=== PATIENT | female | born 2000 | race African-American/Black ===

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

== ENCOUNTER → 2018-06-06 | Outpatient (CLI) | payer OTHER, MEDICAID | LOC: M RAD 11:45 | DX: Z36.89 Encounter for other specified antenatal screening (principal); Z3A.08 8 weeks gestation of pregnancy | CPT/HCPCS: 76801 ==

== ENCOUNTER 2018-07-13 22:14 | Emergency (ER) | payer MEDICAID, OTHER, SELFPAY ==
[~2018-07-13] VITALS: Ht 157.5 cm; Wt 69.1 kg
[~2018-07-13 22:14] MED LIST: CALC500C PO; CLAR1TAB2 PO; IBUP-1022 PO; PRENTAB40 PO; SING10TA32 PO; VALA1TAB2 PO
[2018-07-13 23:00] LABS: BASO % 0.3 % (0.0-1.0); EOS # 0.3 10^3/uL (0.0-0.50); EOS % 3.2 % (0.0-3.0); HEMATOCRIT 41.5 % (36.0-47.0); HEMOGLOBIN 13.8 g/dl (12.0-15.5); LYMPH # 2.3 10^3/uL (1.5-6.5); LYMPH % 24.4 % (24.0-44.0); MEAN CORPUSCULAR HEMOGLOBIN 30.5 pg (27.0-33.0); MEAN CORPUSCULAR HGB CONC 33.3 g/dl (32.0-36.5); MEAN CORPUSCULAR VOLUME 91.8 fl (80.0-96.0); MONO # 0.7 10^3/uL (0.0-0.8); MONO % 7.4 % (0.0-5.0); NEUTROPHILS # 6.1 10^3/uL (1.8-7.7); NEUTROPHILS % 64.6 % (36.0-66.0); PLATELET COUNT, AUTOMATED 278 10^3/uL (150-450); RED BLOOD COUNT 4.52 10^6/uL (4.00-5.40); WHITE BLOOD COUNT 9.4 10^3/uL (4.0-10.0)
[2018-07-13 23:10] LABS: INR 1.05; PROTHROMBIN TIME 13.9 SECONDS (12.1-14.4)
[2018-07-13 23:11] LABS: PARTIAL THROMBOPLASTIN TIME 30.1 SECONDS (25.4-37.6)
[2018-07-13 23:19] LABS: BLOOD UREA NITROGEN 9 MG/DL (7-18); CALCIUM LEVEL 9.1 MG/DL (8.5-10.1); CARBON DIOXIDE LEVEL 26 MEQ/L (21-32); CHLORIDE LEVEL 107 MEQ/L (98-107); CREATININE FOR GFR 0.86 MG/DL (0.55-1.30); GLUCOSE, FASTING 81 MG/DL (70-100); POTASSIUM SERUM 3.5 MEQ/L (3.5-5.1); SODIUM LEVEL 140 MEQ/L (136-145)
[2018-07-14 00:21] LABS: HCG, SERUM QUALITATIVE POSITIVE (NEGATIVE)
--- NOTE | 2018-07-14 01:36 | REPVR ---
EXAM: US First Trimester, Transabdominal EXAM DATE/TIME: 07/14/2018 1:11 AM CLINICAL HISTORY: 18 years old, female; Pain; Other: D&c 06/14, heavy bleeding today; Gestational age or lmp: 07/01/18; ; Prior surgery; Surgery date: <1 month; Additional info: Dnc 06/14, heavy vag bleeding, +hcg TECHNIQUE: Real-time transabdominal obstetrical ultrasound of the maternal pelvis and a first trimester , less than 14 weeks 0 days, with image documentation. COMPARISON: No relevant prior studies available. FINDINGS: Uterus measures 8 x 4 x 5 cm. Uterus is retroverted. No evidence of gestational sac within the endometrial cavity. Endometrial stripe is regular in appearance and measures 4-5 mm. Heterogeneous echolucent material is seen within the endocervical canal without Doppler flow Right ovary appears normal, measuring 4.4 x 1.6 x 1.9 cm. Doppler demonstrates normal vascular flow. Left ovary appears normal, measuring 2.6 x 1.3 x 1.5 cm. Doppler demonstrates normal vascular flow. No abnormal volume of free pelvic fluid. IMPRESSION: No evidence of intrauterine . No ancillary evidence of ectopic , although ectopic cannot be excluded. Differential diagnosis includes spontaneous , very early intrauterine , or ectopic . Echolucent material in the endocervical canal suggests probably blood products from spontaneous . Retained products of conception without vascularity could also give this appearance. Electronically signed by: Frank Morton On 07/14/2018 01:36:01 AM
[2018-07-14 02:12] VITALS: BP 114/58
== END 2018-07-14 02:13 | disposition home or self-care (01) ==
LOC: M ED 22:14
DX: N93.8 Other specified abnormal uterine and vaginal bleeding (principal); R79.9 Abnormal finding of blood chemistry, unspecified; J45.909 Unspecified asthma, uncomplicated; Z79.899 Other long term (current) drug therapy; Z79.3 Long term (current) use of hormonal contraceptives; F17.210 Nicotine dependence, cigarettes, uncomplicated

== ENCOUNTER → 2018-07-16 | Outpatient (CLI) | payer MEDICAID, SELFPAY | LOC: M LAB 10:52 | PROVIDERS: ATTEND Physician Assistant | DX: N93.9 Abnormal uterine and vaginal bleeding, unspecified (principal) ==

== ENCOUNTER 2018-12-16 05:55 | Emergency (ER) | payer MEDICAID, OTHER, SELFPAY ==
[~2018-12-16] VITALS: Ht 157.5 cm; Wt 65.5 kg
[2018-12-16] MEDS ORDERED: NS 1,000 ML IV ONE (06:00)
[2018-12-16] MEDS ORDERED: ISOVUE-370 76% 100ML VIAL (Q9967) As Ordered ONE (06:30)
[2018-12-16 06:38] LABS: BASO % 0.2 % (0.0-1.0); EOS # 0.1 10^3/uL (0.0-0.50); EOS % 0.7 % (0.0-3.0); HEMATOCRIT 35.8 % (36.0-47.0); HEMOGLOBIN 12.2 g/dl (12.0-15.5); LYMPH # 2.5 10^3/uL (1.5-6.5); LYMPH % 16.8 % (24.0-44.0); MEAN CORPUSCULAR HEMOGLOBIN 31.1 pg (27.0-33.0); MEAN CORPUSCULAR HGB CONC 34.1 g/dl (32.0-36.5); MEAN CORPUSCULAR VOLUME 91.3 fl (80.0-96.0); MONO # 1.3 10^3/uL (0.0-0.8); MONO % 8.5 % (0.0-5.0); NEUTROPHILS # 11.1 10^3/uL (1.8-7.7); NEUTROPHILS % 73.4 % (36.0-66.0); PLATELET COUNT, AUTOMATED 255 10^3/uL (150-450); RED BLOOD COUNT 3.92 10^6/uL (4.00-5.40); WHITE BLOOD COUNT 15.1 10^3/uL (4.0-10.0)
[2018-12-16 07:09] LABS: ALBUMIN 3.5 GM/DL (3.2-5.2); ALT/SGPT 42 U/L (12-78); AMYLASE 118 U/L (25-115); BILIRUBIN,DIRECT < 0.1 MG/DL (0.0-0.2); BILIRUBIN,TOTAL 0.2 MG/DL (0.2-1.0); BLOOD UREA NITROGEN 4 MG/DL (7-18); CALCIUM LEVEL 8.7 MG/DL (8.5-10.1); CARBON DIOXIDE LEVEL 27 MEQ/L (21-32); CHLORIDE LEVEL 108 MEQ/L (98-107); CPK CREATINE PHOSPHOKINASE 302 U/L (26-192); CREATININE FOR GFR 0.61 MG/DL (0.55-1.30); ETHYL ALCOHOL (ETHANOL) 0.218 % (0.000-0.010); GLUCOSE, FASTING 111 MG/DL (70-100); LIPASE 109 U/L (73-393); MB/CK RELATIVE INDEX 1.99 (< OR =4); POTASSIUM SERUM 3.6 MEQ/L (3.5-5.1); SODIUM LEVEL 141 MEQ/L (136-145); TOTAL PROTEIN 7.8 GM/DL (6.4-8.2); TROPONIN I < 0.02 NG/ML (< 0.10)
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
[2018-12-16 08:38] VITALS: BP 107/58
--- NOTE | 2018-12-16 14:23 | REP ---
CHEST, SINGLE VIEW: There is no evidence of acute infiltrate. No pleural effusion is seen. The heart is normal in size. The mediastinal silhouette is unremarkable. The visualized osseous structures are intact. IMPRESSION: No acute pulmonary disease. Electronically Signed by Jacob Ornelas MD 12/16/2018 04:40 P
--- NOTE | 2018-12-17 12:07 | ED PDOC ---
Post-Departure Follow-Up dr burdick faxed formal report of ctabd/p for fu Je Dunn MD Dec 17, 2018 12:07
== END 2018-12-16 08:41 | disposition home or self-care (01) ==
LOC: M ED 05:55
DX: Z04.1 Encounter for examination and observation following transport accident (principal); F10.10 Alcohol abuse, uncomplicated; Z79.899 Other long term (current) drug therapy
CPT/HCPCS: 70450; 70486; 71045; 71260; 72125; 74177; 80047; 80048; 80076; 82150; 82550; 82553; 83605; 83690; 84484; 85025; 86850; 86870; 86900; 86901; 93041; 94760; 96360; 96361; 99285; G0480; Q9967

== ENCOUNTER 2019-04-20 13:28 | Emergency (ER) | payer OTHER, SELFPAY ==
[~2019-04-20] VITALS: Ht 157.5 cm; Wt 63.5 kg
[2019-04-20] MEDS ORDERED: VENTAER INH (13:43)
[2019-04-20] MEDS ORDERED: NEXP1IMP SC (13:43)
[2019-04-20 14:46] LABS: VENOUS BASE EXCESS -0.1 (-2.0-2.0); VENOUS O2 SATURATION 92.8 % (60.0-80.0); VENOUS PARTIAL PRESSURE CO2 42.4 mmHg (38.0-50.0); VENOUS PARTIAL PRESSURE O2 66.1 mmHg (30.0-50.0); VENOUS PH 7.388 UNITS (7.330-7.430); VENOUS STANDARD HCO3 24.3 MEQ/L; VENOUS TOTAL CO2 26.3 MEQ/L (24.0-28.0)
[2019-04-20 14:50] LABS: BASO % 0.2 % (0.0-1.0); EOS # 0.1 10^3/uL (0.0-0.5); EOS % 0.8 % (0.0-3.0); HEMATOCRIT 40.5 % (36.0-47.0); HEMOGLOBIN 13.4 g/dl (12.0-15.5); LYMPH # 1.8 10^3/uL (1.5-5.0); LYMPH % 13.3 % (24.0-44.0); MEAN CORPUSCULAR HEMOGLOBIN 30.7 pg (27.0-33.0); MEAN CORPUSCULAR HGB CONC 33.1 g/dl (32.0-36.5); MEAN CORPUSCULAR VOLUME 92.9 fl (80.0-96.0); MONO # 0.8 10^3/uL (0.0-0.8); NEUTROPHILS # 10.9 10^3/uL (1.5-8.5); NEUTROPHILS % 79.3 % (36.0-66.0); PLATELET COUNT, AUTOMATED 278 10^3/uL (150-450); RED BLOOD COUNT 4.36 10^6/uL (4.00-5.40); WHITE BLOOD COUNT 13.8 10^3/uL (4.0-10.0)
[2019-04-20 15:14] LABS: ALBUMIN 3.8 GM/DL (3.2-5.2); ALT/SGPT 16 U/L (12-78); BILIRUBIN,DIRECT 0.1 MG/DL (0.0-0.2); BILIRUBIN,TOTAL 0.5 MG/DL (0.2-1.0); LIPASE 70 U/L (73-393); TOTAL PROTEIN 8.1 GM/DL (6.4-8.2)
[2019-04-20 15:15] LABS: HCG, SERUM QUALITATIVE NEGATIVE (NEGATIVE)
[2019-04-20] MEDS ORDERED: FLAG500T PO (15:26)
[2019-04-20] MEDS ORDERED: CIPR-249 PO (15:26)
[2019-04-20] MEDS ORDERED: cefTRIAXone SOD 250 MG VIAL (J0696) IM ONE (15:30)
[2019-04-20] MEDS ORDERED: AZITHROMYCIN 250 MG TAB PO ONE (15:30)
[2019-04-20] MEDS ORDERED: LIDOCAINE 1% SDV 5 ML VIAL DILUENT ONE (15:30)
--- NOTE | 2019-04-20 15:30 | REP ---
Urinary tract sonogram: History: Right flank pain. Comparison: Comparison CT study December 16, 2018. Findings: Scanning at the level of the urinary bladder shows no abnormality. Renal cortical echogenicity pattern is normal bilaterally and contours are smooth. There is no evidence of hydronephrosis, cyst, mass, or calculus in either kidney. The right kidney measures 10.7 x 5.7 x 4.6 cm. Left renal dimensions are 10.0 x 5.2 x 4.6 cm. Impression: Normal urinary tract sonography. Electronically Signed by Juan Carlos Khalil MD 04/20/2019 03:21 P
[2019-04-20 15:56] VITALS: BP 110/66
[2019-04-20 16:14] LABS: CHLAMYDIA DNA AMPLIFICATION POSITIVE (NEGATIVE); GC DNA AMPLIFICATION NEGATIVE (NEGATIVE)
== END 2019-04-20 16:05 | disposition home or self-care (01) ==
LOC: M ED 13:28
DX: N39.0 Urinary tract infection, site not specified (principal); N76.0 Acute vaginitis; F17.200 Nicotine dependence, unspecified, uncomplicated; Z79.51 Long term (current) use of inhaled steroids
CPT/HCPCS: 76775; 80076; 81001; 82803; 83605; 83690; 84703; 85025; 87088; 87186; 87210; 87661; 96372; 99283; J0696

== ENCOUNTER 2019-09-04 10:02 | Emergency (ER) | payer OTHER, SELFPAY ==
[~2019-09-04] VITALS: Ht 157.5 cm; Wt 67.5 kg
[~2019-09-04 10:02] MED LIST changes: +CIPR-249 PO; +FLAG500T PO; +NEXP1IMP SC; -VALA1TAB2 PO; +VALA1TAB5 PO; +VENTAER INH
[2019-09-04] MEDS ORDERED: ACETAMINOPHEN TAB 650MG DOSE (2X325MG) PO ONE (12:00)
[2019-09-04 12:17] LABS: INFLUENZA A AMPLIFICATION NEGATIVE (NEGATIVE); INFLUENZA B AMPLIFICATION POSITIVE (NEGATIVE)
[2019-09-04 13:09] VITALS: BP 120/57
[2019-09-07] MEDS ORDERED: AMOX500C PO (10:01)
== END 2019-09-04 13:32 | disposition home or self-care (01) ==
LOC: M ED 10:02
DX: J10.89 Influenza due to other identified influenza virus with other manifestations (principal); B34.9 Viral infection, unspecified; J45.909 Unspecified asthma, uncomplicated; Z79.899 Other long term (current) drug therapy; Z79.3 Long term (current) use of hormonal contraceptives; F17.210 Nicotine dependence, cigarettes, uncomplicated

== ENCOUNTER → 2024-02-07 | Outpatient (CLI) | payer OTHER ==
[~2024-02-07] MED LIST changes: +AMOX500C PO; -CALC500C PO; +ETON68IM SC; +MONT-5 PO; -NEXP1IMP SC; +RA A500C4 PO; -SING10TA32 PO
[2024-02-07 16:16] LABS: HEMATOCRIT 34.7 % (36.0-47.0); HEMOGLOBIN 11.5 g/dl (12.0-15.5); MEAN CORPUSCULAR HEMOGLOBIN 31.9 pg (27.0-33.0); MEAN CORPUSCULAR HGB CONC 33.1 g/dl (32.0-36.5); MEAN CORPUSCULAR VOLUME 96.1 fl (80.0-96.0); PLATELET COUNT, AUTOMATED 293 10^3/uL (150-450); RED BLOOD COUNT 3.61 10^6/uL (4.00-5.40); WHITE BLOOD COUNT 13.3 10^3/uL (4.0-10.0)
[2024-02-07 17:09] LABS: HEPATITIS B SURFACE ANTIGEN NEGATIVE (NEGATIVE)
[2024-02-07 17:22] LABS: HIV 1&2 SCREEN NEGATIVE (NEGATIVE)
[2024-02-07 17:30] LABS: HEPATITIS C VIRUS ABY INDEX < 0.02 INDEX (<0.8)
[2024-02-07 17:42] LABS: GC DNA AMPLIFICATION NEGATIVE (NEGATIVE)
== END ==
LOC: M PLALAB 14:25
PROVIDERS: ATTEND Nurse Practitioner Women's Health
DX: Z34.91 Encounter for supervision of normal pregnancy, unspecified, first trimester (principal)

== ENCOUNTER 2024-03-19 21:39 | Emergency (ER) | payer OTHER ==
[~2024-03-19] VITALS: Ht 160 cm; Wt 63.1 kg
[2024-03-19 21:40] VITALS: BP 99/54; TEMP 99.2; O2SAT 100
== END 2024-03-19 22:20 | disposition admitted as inpatient to this hospital (09) ==
LOC: M ED 21:39
DX: Z53.21 Procedure and treatment not carried out due to patient leaving prior to being seen by health care provider (principal)

== ENCOUNTER 2024-03-19 22:10 | Outpatient (CLI) | payer OTHER ==
[~2024-03-19] VITALS: Ht 160 cm; Wt 63.2 kg
[2024-03-19 22:32] VITALS: BP 104/59
[2024-03-19] MEDS: ONDANSETRON 4MG 2ML VIAL IV ONE (23:20)
[2024-03-19 23:23] LABS: BASO % 0.2 % (0.0-1.0); EOS % 0.2 % (0.0-3.0); HEMATOCRIT 38.4 % (36.0-47.0); HEMOGLOBIN 12.9 g/dl (12.0-15.5); LYMPH # 0.8 10^3/uL (1.5-5.0); LYMPH % 6.1 % (24.0-44.0); MEAN CORPUSCULAR HEMOGLOBIN 32.1 pg (27.0-33.0); MEAN CORPUSCULAR HGB CONC 33.6 g/dl (32.0-36.5); MEAN CORPUSCULAR VOLUME 95.5 fl (80.0-96.0); MONO # 0.6 10^3/uL (0.0-0.8); NEUTROPHILS # 11.1 10^3/uL (1.5-8.5); NEUTROPHILS % 88.3 % (36.0-66.0); PLATELET COUNT, AUTOMATED 289 10^3/uL (150-450); RED BLOOD COUNT 4.02 10^6/uL (4.00-5.40); WHITE BLOOD COUNT 12.5 10^3/uL (4.0-10.0)
[2024-03-19] MEDS ORDERED: LR 1,000 ML IV SCH (23:35)
[2024-03-19 23:55] LABS: ALBUMIN 3.5 G/DL (3.2-5.2); ALKALINE PHOSPHATASE 72 U/L (46-116); ALT/SGPT 29 U/L (7.0-40); AST/SGOT 49 U/L (<34); BILIRUBIN,TOTAL 0.5 MG/DL (0.3-1.2); BLOOD UREA NITROGEN < 5 MG/DL (9-23); CALCIUM LEVEL 8.4 MG/DL (8.5-10.1); CARBON DIOXIDE LEVEL 23 MMOL/L (20-31); CHLORIDE LEVEL 105 MMOL/L (98-107); CREATININE FOR GFR 0.51 MG/DL (0.55-1.30); GLOMERULAR FILTRATION RATE > 60.0 (>60); GLUCOSE, FASTING 71 MG/DL (60-100); POTASSIUM SERUM 4.9 MMOL/L (3.5-5.1); SODIUM LEVEL 134 MMOL/L (136-145); TOTAL PROTEIN 7.3 G/DL (5.7-8.2)
[2024-03-19] MEDS: LR 1,000 ML IV ONE (23:58)
[2024-03-20] MEDS ORDERED: HOME MED LIST COMPLETE! XX SCH (04:05)
== END 2024-03-20 04:00 | disposition home or self-care (01) ==
LOC: M LDO 22:10
PROVIDERS: ATTEND Obstetrics & Gynecology
DX: O98.512 Other viral diseases complicating pregnancy, second trimester (principal); O34.212 Maternal care for vertical scar from previous cesarean delivery; O09.292 Supervision of pregnancy with other poor reproductive or obstetric history, second trimester; O26.22 Pregnancy care for patient with recurrent pregnancy loss, second trimester; U07.1 COVID-19; Z3A.23 23 weeks gestation of pregnancy
CPT/HCPCS: 59025; 80053; 85025; 96374; G0463; J2405

== ENCOUNTER 2024-04-18 20:04 | Emergency (ER) | payer OTHER ==
[~2024-04-18] VITALS: Ht 160 cm; Wt 80.2 kg
[2024-04-18 20:08] VITALS: BP 108/56; TEMP 96.5; O2SAT 100
[2024-04-18 21:26] LABS: HEMATOCRIT 35.6 % (36.0-47.0); HEMOGLOBIN 11.8 g/dl (12.0-15.5); MEAN CORPUSCULAR HEMOGLOBIN 32.1 pg (27.0-33.0); MEAN CORPUSCULAR HGB CONC 33.1 g/dl (32.0-36.5); MEAN CORPUSCULAR VOLUME 96.7 fl (80.0-96.0); PLATELET COUNT, AUTOMATED 313 10^3/uL (150-450); RED BLOOD COUNT 3.68 10^6/uL (4.00-5.40); WHITE BLOOD COUNT 15.9 10^3/uL (4.0-10.0)
[2024-04-18 22:01] LABS: ATYPICAL LYMPH 1 % (0-5); LIPASE 34 U/L (12-53); LYMPHOCYTES 10 % (16-44); MONOCYTES 5 % (0-5); NEUTROPHILS 84 % (28-66); PLATELET ESTIMATE NORMAL (NORMAL)
[2024-04-18 22:08] LABS: ALKALINE PHOSPHATASE 78 U/L (46-116); ALT/SGPT < 9 U/L (7.0-40); AST/SGOT 13 U/L (<34); BILIRUBIN,DIRECT 0.2 MG/DL (<0.4); BILIRUBIN,TOTAL 0.7 MG/DL (0.3-1.2); BLOOD UREA NITROGEN 7 MG/DL (9-23); CALCIUM LEVEL 9.5 MG/DL (8.5-10.1); CARBON DIOXIDE LEVEL 24 MMOL/L (20-31); CHLORIDE LEVEL 107 MMOL/L (98-107); CREATININE FOR GFR 0.56 MG/DL (0.55-1.30); GLOMERULAR FILTRATION RATE > 60.0 (>60); GLUCOSE, FASTING 73 MG/DL (60-100); POTASSIUM SERUM 4.7 MMOL/L (3.5-5.1); SODIUM LEVEL 137 MMOL/L (136-145); TOTAL PROTEIN 6.8 G/DL (5.7-8.2)
== END 2024-04-19 00:05 | disposition left against medical advice (07) ==
LOC: M ED 20:04
DX: Z53.21 Procedure and treatment not carried out due to patient leaving prior to being seen by health care provider (principal)